=== PATIENT | female | born 1990 | race Asian ===

== ENCOUNTER 2017-08-30 00:11 | Emergency (ER) | payer BC ==
[2017-08-30] MEDS: LORazepam 1 MG TABLET PO ×2 (00:49)
[2017-08-30 00:56] LABS: POC GLUCOSE 72 mg/dL (70-99)
== END 2017-08-30 01:26 | disposition home or self-care (01) ==
LOC: ER 00:11
DX: R06.4 Hyperventilation (principal); F41.9 Anxiety disorder, unspecified; R07.89 Other chest pain
CPT/HCPCS: 82962; 99284